=== PATIENT | male | born 1980 ===

== ENCOUNTER 2017-07-26 02:24 | Emergency (ER) ==
[~2017-07-26] VITALS: Ht 175.3 cm; Wt 69.8 kg
[2017-07-26 02:26] VITALS: TEMP 36.5; Ht 175.3 cm; Wt 69.8 kg
[2017-07-26 02:37] VITALS: O2SAT 96
[2017-07-26 02:55] LABS: CALCIUM 8.5 mg/dl (8.5-10.1); CREATININE 0.9 mg/dl (0.60-1.40); POTASSIUM 3.9 mmol/L (3.5-5.1)
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
[2017-07-26 09:44] VITALS: BP 142/113; PULSE 88; O2SAT 96
== END 2017-07-26 09:41 | disposition home or self-care (01) ==
LOC: EDBD 02:24 → C.EDB 02:26
DX: F10.920 Alcohol use, unspecified with intoxication, uncomplicated (principal); F17.200 Nicotine dependence, unspecified, uncomplicated